=== PATIENT | female | born 1975 | race Caucasian/White ===

== ENCOUNTER → 2020-11-23 | Outpatient (CLI) | payer OTHER ==
[2020-11-23 07:55] LABS: ABSOLUTE EOSINOPHILS 0.1 thou/uL (0.0-0.7); ABSOLUTE LYMPHOCYTES 1.4 thou/uL (0.8-5.3); ABSOLUTE MONOCYTES 0.3 thou/uL (0.0-1.2); ABSOLUTE NEUTROPHILS 1.9 thou/uL (1.6-8.1); BASOPHILS 0.9 %; EOSINOPHILS 1.7 %; HEMATOCRIT 27.2 % (37.0-47.0); HEMOGLOBIN 8.1 gm/dL (12.0-15.0); MCH 19.5 pg (26.0-34.0); MCHC 29.8 g/dL (28.0-37.0); MCV 65.4 fL (80.0-100.0); MONOCYTES 8.1 %; MPV 6.2 fl. (7.2-11.1); NUCLEATED RBCS 0 /100WBC; PLATELET COUNT* 418 thou/uL (150-400); POLYS 52.3 %; RBC 4.17 mil/uL (4.20-5.00); RDW-CV 17.6 % (10.5-14.5); WBC 3.7 thou/uL (4.0-11.0)
[2020-11-23 08:50] LABS: HYPOCHROMASIA 3+; PLATELET ESTIMATE INCREASED
[2020-11-23 08:51] LABS: ANISOCYTOSIS 2+; MICROCYTES 2+; OVALOCYTES Occasional; POIKILOCYTOSIS Occasional
[2020-11-23 09:16] LABS: % SATURATION 3 % (20-39); IRON 11 ug/dL (50-175)
[2020-11-23 09:19] LABS: ESR (SEDRATE) 25 mm/hr (0-20)
== END ==
LOC: M.ULTRA 07:31
PROVIDERS: ATTEND Internal Medicine Gastroenterology
DX: N28.1 Cyst of kidney, acquired (principal); D64.9 Anemia, unspecified